=== PATIENT | female | born 1965 | race Caucasian/White ===

== ENCOUNTER 2017-11-09 09:10 | Day surgery (SDC) | payer OTHER ==
[2017-11-09] MEDS ORDERED: FENTAnyl 50 MCG/ML VIAL (11:10)
[2017-11-09] MEDS ORDERED: MIDAZOLAM 1 MG/ML 2 ML INJ ×4 (11:10→11:11)
== END 2017-11-09 12:57 | disposition home or self-care (01) ==
LOC: GIL 09:10
DX: Z12.11 Encounter for screening for malignant neoplasm of colon (principal); K21.9 Gastro-esophageal reflux disease without esophagitis; K29.70 Gastritis, unspecified, without bleeding; K64.8 Other hemorrhoids
CPT/HCPCS: 43239; 87081